=== PATIENT | female | born 1940 | race Caucasian/White ===

== ENCOUNTER 2021-11-08 16:27 | Inpatient (IN) | payer MEDICARE, OTHER ==
[~2021-11-08] VITALS: Ht 165.1 cm; Wt 68.0 kg
[~2021-11-08 16:27] MED LIST: CEFDINIR300 MG PO; LEVOFLOXACIN500 MG PO; PREDNISONE10 MG PO
[2021-11-08 23:14] LABS: HEMOGLOBIN 12.6 gm/dl (12.3-15.3); RED BLOOD COUNT 4.07 M/UL (4.00-5.10); WHITE BLOOD COUNT 5.1 K/UL (4.5-11.0)
[2021-11-08 23:35] LABS: BUN/CREATININE RATIO 24 (0-10)
[2021-11-09 03:23] LABS: BUN/CREATININE RATIO 26 (0-10)
[2021-11-09] MEDS ORDERED: PLAVIX 75 MG TA75 MG PO (14:00)
[2021-11-09] MEDS ORDERED: LEVOTHYROXINE75 MCG PO (14:01)
[2021-11-09] MEDS ORDERED: LEXAPRO20 MG PO (14:01)
[2021-11-09] MEDS ORDERED: PROTONIX40 MG PO (14:02)
[2021-11-09] MEDS ORDERED: HYDROCODON-ACE1 EAC6 PO (14:04)
[2021-11-09] MEDS ORDERED: FENTANYL1 EACH TD (14:04)
[2021-11-09] MEDS ORDERED: HYDROXYZINE HCL25 MG PO (14:05)
[2021-11-09] MEDS ORDERED: TRAZODONE HCL50 MG PO (14:05)
[2021-11-09] MEDS ORDERED: VERAPAMIL ER240 MG PO (14:06)
[2021-11-09] MEDS ORDERED: LASIX20 MG PO (14:07)
[2021-11-09] MEDS ORDERED: SINGULAIR10 MG PO (14:07)
[2021-11-09] MEDS ORDERED: HYDRALAZINE HCL50 MG PO (14:07)
[2021-11-09] MEDS ORDERED: DOCUSATE SODIU100 MG PO (14:08)
[2021-11-09] MEDS ORDERED: MIRALAX17 GM PO (14:09)
[2021-11-09] MEDS ORDERED: VITAMIN D325 MCG PO (14:09)
[2021-11-09] MEDS ORDERED: HEMP OIL PO (14:10)
[2021-11-09] MEDS ORDERED: PHENERGAN 25 MG25 M1 PO (14:18)
[2021-11-09] MEDS ORDERED: PULMICORT0.5 MG/21 NEB (14:18)
[2021-11-10 09:51] LABS: BUN/CREATININE RATIO 29 (0-10)
[2021-11-10 16:13] LABS: RED BLOOD COUNT 4.31 M/UL (4.00-5.10)
[2021-11-10 16:25] LABS: WHITE BLOOD COUNT 16.1 K/UL (4.5-11.0)
--- NOTE | 2021-11-10 17:13 | NUR ---
PTS 12.5 FENTANYL PATCH WAS DISCARDED PROPERLY AND WITNESSED BY KENZIE GOLDSTEIN. PT HAS NEW 25 MCG FENTANYL PATCH ON THE RIGHT UPPER BACK.
[2021-11-11 04:15] LABS: HEMOGLOBIN 13.4 gm/dl (12.3-15.3); RED BLOOD COUNT 4.15 M/UL (4.00-5.10); WHITE BLOOD COUNT 12.6 K/UL (4.5-11.0)
[2021-11-11 04:31] LABS: BUN/CREATININE RATIO 28 (0-10)
[2021-11-12 03:31] LABS: HEMOGLOBIN 12.9 gm/dl (12.3-15.3); RED BLOOD COUNT 4.2 M/UL (4.00-5.10); WHITE BLOOD COUNT 10.8 K/UL (4.5-11.0)
[2021-11-12 04:06] LABS: BUN/CREATININE RATIO 29 (0-10)
--- NOTE | 2021-11-12 04:27 | NUR ---
NOTIFIED DR CHATMAN OF PTS POTASSIUM LEVEL OF 3.2. NO REPLACEMENT ORDERS OR NEW ORDERS AT THIS TIME.
[2021-11-12 07:10] LABS: HEMOGLOBIN 12.6 gm/dl (12.3-15.3); RED BLOOD COUNT 4.21 M/UL (4.00-5.10); WHITE BLOOD COUNT 12.1 K/UL (4.5-11.0)
[2021-11-12 07:42] LABS: BUN/CREATININE RATIO 27 (0-10)
[2021-11-13 04:05] LABS: HEMOGLOBIN 12.7 gm/dl (12.3-15.3); RED BLOOD COUNT 4.21 M/UL (4.00-5.10); WHITE BLOOD COUNT 14.2 K/UL (4.5-11.0)
[2021-11-13 04:22] LABS: BUN/CREATININE RATIO 27 (0-10)
[2021-11-14 04:42] LABS: BUN/CREATININE RATIO 33 (0-10)
[2021-11-15 03:34] LABS: HEMOGLOBIN 11.4 gm/dl (12.3-15.3); WHITE BLOOD COUNT 14.2 K/UL (4.5-11.0)
[2021-11-15 03:42] LABS: RED BLOOD COUNT 3.74 M/UL (4.00-5.10)
[2021-11-15 03:59] LABS: BUN/CREATININE RATIO 32 (0-10)
[2021-11-16 04:35] LABS: BUN/CREATININE RATIO 39 (0-10)
[2021-11-16 19:08] LABS: ORGANISM ID Not indicated. (.); SPECIMEN SOURCE Urine (.); STREPTOCOCCUS PNEUMONIAE AG Negative (Negative)
--- NOTE | 2021-11-17 01:27 | NUR ---
PATIENT TIME OF 011 ON 11/17/21. CONFIRMED WITH ANOTHER NURSE, JOAQUÍN SARKAR RN. ALL LOBES ASCULATATED, NO BREATH SOUNDS, NO PULSE. PATIENTS FAMILY AT BEDSIDE AND AWARE. MD ALSO AWARE.
== END 2021-11-17 01:12 | disposition expired | DRG 177 ==
LOC: PROG CARE 20:12 → EDBD 20:12 → PROG CARE 11-17 01:12
PROVIDERS: Internal Medicine; Internal Medicine Critical Care Medicine; Internal Medicine Nephrology; ADMIT Internal Medicine
PROC: 8E0ZXY6 Isolation (ICD-10-PCS; 2021-11-08)
PROC: XW033E5 Introduction of Remdesivir Anti-infective into Peripheral Vein, Percutaneous Approach, New Technology Group 5 (ICD-10-PCS; 2021-11-08)
PROC: 3E0333Z Introduction of Anti-inflammatory into Peripheral Vein, Percutaneous Approach (ICD-10-PCS; 2021-11-08)
PROC: 5A09457 Assistance with Respiratory Ventilation, 24-96 Consecutive Hours, Continuous Positive Airway Pressure (ICD-10-PCS; principal; 2021-11-09)
DX: U07.1 COVID-19 (principal); J12.82 Pneumonia due to coronavirus disease 2019; J96.21 Acute and chronic respiratory failure with hypoxia; E87.1 Hypo-osmolality and hyponatremia; J44.0 Chronic obstructive pulmonary disease with (acute) lower respiratory infection; F11.20 Opioid dependence, uncomplicated; E87.3 Alkalosis; I50.32 Chronic diastolic (congestive) heart failure; N17.9 Acute kidney failure, unspecified; I11.0 Hypertensive heart disease with heart failure; R53.81 Other malaise; K21.9 Gastro-esophageal reflux disease without esophagitis; E03.9 Hypothyroidism, unspecified; E11.9 Type 2 diabetes mellitus without complications; Z66 Do not resuscitate; M54.9 Dorsalgia, unspecified; M19.91 Primary osteoarthritis, unspecified site; G89.29 Other chronic pain; R63.1 Polydipsia; K59.00 Constipation, unspecified; M51.36 Other intervertebral disc degeneration, lumbar region; E87.5 Hyperkalemia; R91.8 Other nonspecific abnormal finding of lung field; E66.9 Obesity, unspecified; Z96.653 Presence of artificial knee joint, bilateral; E87.6 Hypokalemia; Z90.49 Acquired absence of other specified parts of digestive tract; Z90.710 Acquired absence of both cervix and uterus; Z98.890 Other specified postprocedural states; Z88.5 Allergy status to narcotic agent; Z86.73 Personal history of transient ischemic attack (TIA), and cerebral infarction without residual deficits; Z79.1 Long term (current) use of non-steroidal anti-inflammatories (NSAID); Z79.4 Long term (current) use of insulin; Z51.5 Encounter for palliative care; Z68.24 Body mass index [BMI] 24.0-24.9, adult
CPT/HCPCS: ECHO; 36415; 36600; 71045; 80048; 80053; 82436; 82550; 82553; 82803; 82962; 83615; 83735; 83880; 83930; 83935; 84295; 84300; 84439; 84443; 84484; 85025; 85027; 86140; 87081; 87278; 87899; 93005; 93306; 94640; 94660; 94760; J0456; J0696; J1100; J1120; J1170; J1650; J1940; J2060; J2185; J2405; J3370; J7030; J7040; J7070; J7131; U0002